=== PATIENT | male | born 1980 | race Caucasian/White ===

== ENCOUNTER 2021-08-07 10:01 | Emergency (ER) | payer OTHER ==
[~2021-08-07] VITALS: Ht 175.3 cm; Wt 81.6 kg
--- NOTE | 2021-08-07 11:18 | NUR ---
PT biblapd, needs clearance for booking, c/o abd pain and dizziness. PT A/OX4. TOLERATING R/A WELL WITH NO SOB AT 98%
--- NOTE | 2021-08-07 12:10 | NUR ---
Patient does not wish to proceed with medical care recommended by Dr. Clark. Patient given information related to possible complications, up to and including , which could occur as a result of leaving the hospital at this time. Patient verbalizes understanding of risks involved due to leaving against medical advice. Patient has signed AMA form.
--- NOTE | 2021-08-07 12:13 | NUR ---
Patient was taken to custody by lapd in stable condition.
--- NOTE | 2021-08-07 12:13 | NUR ---
PT REFUSED TREATMENT. AWARE.
[2021-08-07 12:15] VITALS: BP 121/86
== END 2021-08-07 12:15 ==
LOC: ER 10:07
DX: Z02.89 Encounter for other administrative examinations (principal); R51.9 Headache, unspecified; R42 Dizziness and giddiness